=== PATIENT | female | born 1970 | race Hispanic/Latino ===

== ENCOUNTER 2020-07-04 12:44 | Observation (INO) | payer OTHER ==
[2020-07-04 14:26] LABS: Absolute Lymphocytes (CBC) 1.4 K/uL (0.7-4.9); Basophils % 0.2 % (0-1.3); Hematocrit 43.8 % (36.0-45.0); Lymphocytes % 19.5 % (15.3-44.8); MPV 6.9 fL (7.6-11.3); RBC Red Blood Cell Count 5.03 M/uL (3.86-4.86)
[2020-07-04 14:28] LABS: Protime INR 0.94
--- NOTE | 2020-07-04 14:29 | RAD REPORT ---
EXAM DESCRIPTION: RAD - Chest Single View - 07/04/2020 2:16 pm CLINICAL HISTORY: DYSPNEA Chest pain. COMPARISON: No comparisons FINDINGS: Portable technique limits examination quality. Moderate bilateral interstitial lung opacities, greater on the left, most compatible with viral infec tion. The heart is normal in size. No displaced fractures.
[2020-07-04 14:50] LABS: ALT/SGPT 54 U/L (12-78); AST/SGOT 47 U/L (15-37); Albumin 3.1 g/dL (3.4-5.0); Alkaline Phosphatase 179 U/L (45-117); BUN Blood Urea Nitrogen 9 mg/dL (7-18); Bicarbonate 25 mmol/L (21-32); Bilirubin Direct 0.1 mg/dL (0-0.2); Bilirubin Total 0.4 mg/dL (0.2-1.0); Ferritin 319.1 ng/mL (8-388); Glucose Level 244 mg/dL (74-106); Lipase 119 U/L (73-393); Potassium 3.4 mmol/L (3.5-5.1); Protein, Total 8.9 g/dL (6.4-8.2); Sodium Level 134 mmol/L (136-145); Troponin (Emerg Dept Use Only) < 0.02 ng/mL (0.0-0.045)
[2020-07-04 14:56] LABS: Urine Blood TRACE (NEG); Urine Glucose 2+ (NEG); Urine Protein 2+ (NEG); Urine Specific Gravity 1.025 (1.005-1.030); Urine pH 5.5 (5.0-7.0)
[2020-07-04] MEDS ORDERED: METHYLPREDNISOLONE 125 MG INJ ONE ×2 (14:59→22:02)
[2020-07-04 15:56] LABS: Urine Bacteria 20-50 /HPF (<20); Urine RBC <5 /HPF (NONE SEEN)
--- NOTE | 2020-07-04 16:38 | RAD REPORT ---
EXAM DESCRIPTION: CT - Chest For Pe Angio - 07/04/2020 4:26 pm CLINICAL HISTORY: Chest pain. Chest pain;Dyspnea COMPARISON: No comparisons TECHNIQUE: CT angiogram of the pulmonary arteries was performed with MIP. All CT scans are performed using dose optimization technique as appropriate and may include automated exposure control or mA/KV adjustment according to patient size. FINDINGS: No evidence of pulmonary thromboembolism. No acute aortic finding demonstrated. Moderate bilateral interstitial and alveolar lung opacities are present most compatible with viral in fection/pneumonia. No significant pericardial or pleural fluid. No concerning bony finding. Mild diffuse fatty liver. IMPRESSION: No evidence of pulmonary thromboembolism. Interstitial and alveolar lung opacities are present bilaterally most compatible with viral infection / pneumonia.
--- NOTE | 2020-07-04 16:52 | ER ---
Nurse's Notes [facility] Name: Amrita Kaminski Age: 50 yrs Sex: Female : 1970 Arrival Date: 07/04/2020 Time: 12:45 Bed 23 Private MD: Diagnosis: SARS-associated coronavirus as the cause of diseases classified elsewhere;Viral pneumonia, unspecified-COVID related;Acute respiratory failure with hypoxia;Urinary tract infection, site not specified Presentation: 07/04 12:48 Chief complaint: Patient states: Tested positive for covid last Wednesday at [place]. sv SOB, CP for 3 days. Zithromax since yesterday. No fever. Coronavirus screen: Client denies travel out of the [place] in the last 14 days. congestion, cough unrelated to allergies, difficulty breathing, fatigue, Client presents with at least one sign or symptom that may indicate coronavirus-19. Standard/surgical mask placed on the client. Client reports previous positive COVID test result. Ebola Screen: Patient denies travel to an Ebola-affected area in the 21 days before illness onset. Initial Sepsis Screen: Does the patient meet any 2 criteria? HR > 90 bpm. No. Patient's initial sepsis screen is negative. Does the patient have a suspected source of infection? Yes: Productive cough/pneumonia. Risk Assessment: Do you want to hurt yourself or someone else? Patient reports no desire to harm self or others. Onset of symptoms was June 27, 2020. 12:48 Method Of Arrival: Ambulatory sv 12:48 Acuity: ALLEN 3 sv Historical: - Allergies: 12:51 No Known Allergies; sv - PMHx: 12:51 Diabetes - NIDDM; sv - PSHx: 12:51 None; sv - Immunization history:: Flu vaccine is up to date. - Social history:: Smoking status: Patient denies any tobacco usage or history of. Screenin:35 Abuse screen: Denies threats or abuse. Nutritional screening: No deficits noted. vg1 Tuberculosis screening: No symptoms or risk factors identified. Fall Risk No fall in past 12 months (0 pts). No secondary diagnosis (0 pts). No IV (0 pts). Ambulatory Aid- None/Bed Rest/Nurse Assist (0 pts). Gait- Normal/Bed Rest/Wheelchair (0 pts) Mental Status- Oriented to own ability (0 pts). Total Godwin Fall Scale indicates No Risk (0-24 pts). Assessment: 13:30 General: Appears in no apparent distress. comfortable, Behavior is calm, cooperative. vg1 Pain: Complains of pain in chest; states when coughing. Pain does not radiate. Pain began for about a week. Patient tested Covid positive at the ER in [place] on Wednesday06/26/20. Neuro: Level of Consciousness is awake, alert, obeys commands, Oriented to person, place, time, situation. Cardiovascular: Patient's skin is warm and dry. Respiratory: Reports shortness of breath on exertion cough that is productive, and clear. pain with cough Breath sounds are clear bilaterally. GI: Patient currently denies diarrhea, nausea, vomiting. : No signs and/or symptoms were reported regarding the genitourinary system. EENT: No signs and/or symptoms were reported regarding the EENT system. Derm: Skin is intact, is healthy with good turgor. Musculoskeletal: Circulation, motion, and sensation intact. 14:50 Reassessment: Patient appears in no apparent distress at this time. No changes from vg1 previously documented assessment. Patient and/or family updated on plan of care and expected duration. Pain level reassessed. Patient is alert, oriented x 3, equal unlabored respirations, skin warm/dry/pink. Patient denies pain at this time. 16:12 Reassessment: Patient appears in no apparent distress at this time. Patient and/or vg1 family updated on plan of care and expected duration. Pain level reassessed. Patient is alert, oriented x 3, equal unlabored respirations, skin warm/dry/pink. Patient denies pain at this time. Patient states feeling better. 16:47 Reassessment: Patients O2 91% at rest, O2 88% on exertion. Provider Notified. vg1 18:47 Reassessment: New medication orders input by Emir Burton NP. Tylenol 1g PO x1, NS 1 L vg1 bolus IV x1 , and metoprolol 50 mg PO x1. Vital Signs: 12:48 Pulse 110; Resp 18; Temp 98.5; Pulse Ox 96% ; Weight 91.17 kg; Height 5 ft. 0 in. sv (152.40 cm); Pain 8/10; 12:52 BP 191 / 102; sv 13:33 BP 164 / 117; Pulse 110; Resp 20; Temp 99.9(O); Pulse Ox 100% ; vg1 14:30 BP 176 / 105; Pulse 105; Resp 22; Pulse Ox 96% on R/A; vg1 15:00 BP 163 / 111; Pulse 105; Resp 24; Pulse Ox 95% on R/A; vg1 16:00 BP 165 / 102; Pulse 112; Resp 26; Pulse Ox 95% on R/A; vg1 16:49 BP 152 / 112; Pulse 111; Resp 26; Pulse Ox 96% on 3 lpm NC; vg1 17:00 BP 156 / 113; Pulse 116; Resp 26; Pulse Ox 97% on 2 lpm NC; vg1 18:00 BP 166 / 103; Pulse 115; Resp 28; Pulse Ox 95% on 2 lpm NC; vg1 12:48 Body Mass Index 39.25 (91.17 kg, 152.40 cm) sv 13:33 O2 100% resting. O2 91% exertion. vg1 ED Course: 12:45 Patient arrived in ED. as 12:50 Triage completed. sv 12:52 Arm band placed on. sv 13:22 Nimo De La Torre, RN is Primary Nurse. vg1 13:35 Patient has correct armband on for positive identification. Bed in low position. Call vg1 light in reach. Side rails up X 1. 13:35 Patient maintains SpO2 saturation greater than 95% on room air. vg1 13:42 Boris Thomas PA is PHCP. jr8 13:42 Bulmaro Lomas MD is Attending Physician. jr8 14:00 Inserted saline lock: 20 gauge in right antecubital area, using aseptic technique. jp3 Blood collected. 14:00 First set of blood cultures drawn by me. jp3 14:07 Initial lab(s) drawn, by me, sent to lab. jp3 14:10 Second set of blood cultures drawn by me. jp3 14:12 X-ray(s) taken. jp3 14:15 CXR XRAY In Process Unspecified. EDMS 14:26 EKG done, by ED staff, reviewed by Boris SWENSON. jp3 14:27 Warm blanket given. Verbal reassurance given. Diet: Patient given ice chips. Cardiac jp3 monitor on. Pulse ox on. NIBP on. 15:15 Notified Nurse Practitioner and/or Physician Private Household Worker of a critical lab result(s), sv D-dimer-558. 15:32 Blood Culture Adult (2) Sent. sv 15:32 BMP Sent. sv 15:32 C-Reactive Protein Sent. sv 15:32 CBC with Diff Sent. sv 15:32 D-Dimer Sent. sv 15:32 Ferritin Sent. sv 15:32 Lactate Sent. sv 16:26 CT Chest For PE Angio In Process Unspecified. EDMS 16:51 Michael Lawson MD is Hospitalizing Provider. jr8 19:12 Report given to FABIO Lorenzana. vg1 07/05 04:02 Primary Nurse role handed off by Nimo De La Torre, RN mw2 Administered Medications: 07/04 14:50 Drug: SOLU-Medrol 125 mg Route: IVP; Site: right antecubital; vg1 15:38 Follow up: Response: No adverse reaction vg1 17:15 Drug: Rocephin 2 grams Route: IV; Rate: calculated rate; Site: right antecubital; vg1 17:34 Follow up: Response: No adverse reaction; IV Status: Completed infusion vg1 17:34 Drug: Potassium Chloride 40 mEq Route: PO; vg1 18:49 Follow up: Response: No adverse reaction vg1 19:02 Drug: Tylenol 1000 mg Route: PO; vg1 19:02 Drug: Metoprolol 50 mg Route: PO; vg1 19:12 Drug: NS 0.9% 1000 ml Route: IV; Rate: 1 bolus; Site: right antecubital; vg1 Outcome: 16:51 Decision to Hospitalize by Provider. jr8 07/05 18:42 Patient left the ED. ca1 Signatures: Dispatcher [employer] EDWA Karolina Martin, RN RN Vivi Tyler Josh, PA PA jr8 Thelma Newton mw2 Ryan Menjivar jp3 Staci Heath RN RN ca1 Nimo De La Torre RN RN vg1
--- NOTE | 2020-07-04 16:52 | EDPHYS ---
Physician Documentation [facility] Name: Amrita Kaminski Age: 50 yrs Sex: Female : 1970 Arrival Date: 07/04/2020 Time: 12:45 Bed 23 Private MD: ED Physician Bulmaro Lomas HPI: 07/04 14:30 This 50 yrs old Female presents to ER via Ambulatory with complaints of Chest jr8 Pain, Epigastric Pain. 14:30 Onset: The symptoms/episode began/occurred suddenly, last week. Associated signs and jr8 symptoms: Pertinent positives: shortness of breath, COVID diagnosis. Modifying factors: The patient symptoms are alleviated by nebulizer treatment(s). Was diagnosed with COVID on Wednesday. Her PCP gave her ABx and neb treatments to take at home. She reports to ED with c/o of increased SOB and chest pain. She reports she feels she can not speak in full sentences without needing to try to take a deep breath. She has PMHx of DM that she takes metformin for. . Historical: - Allergies: 12:51 No Known Allergies; sv - PMHx: 12:51 Diabetes - NIDDM; sv - PSHx: 12:51 None; sv - Immunization history:: Flu vaccine is up to date. - Social history:: Smoking status: Patient denies any tobacco usage or history of. ROS: 14:32 Cardiovascular: Negative for chest pain, palpitations, and edema, Abdomen/GI: Negative jr8 for abdominal pain, nausea, vomiting, diarrhea, and constipation, : Negative for injury, bleeding, discharge, and swelling, MS/Extremity: Negative for injury and deformity, Skin: Negative for injury, rash, and discoloration. 14:32 Respiratory: Positive for cough, shortness of breath. 14:37 All other systems are negative. jr8 Exam: 14:33 Head/Face: Normocephalic, atraumatic. Chest/axilla: Normal chest wall appearance and jr8 motion. Nontender with no deformity. No lesions are appreciated. Cardiovascular: Regular rate and rhythm with a normal S1 and S2. No gallops, murmurs, or rubs. Normal PMI, no JVD. No pulse deficits. Abdomen/GI: Soft, non-tender, with normal bowel sounds. No distension or tympany. No guarding or rebound. No evidence of tenderness throughout. Skin: Warm, dry with normal turgor. Normal color with no rashes, no lesions, and no evidence of cellulitis. MS/ Extremity: Pulses equal, no cyanosis. Neurovascular intact. Full, normal range of motion. 14:33 Respiratory: mild respiratory distress is noted, Respirations: shallow respirations, that is mild, Breath sounds: decreased breath sounds, + upper airway congestion. Vital Signs: 12:48 Pulse 110; Resp 18; Temp 98.5; Pulse Ox 96% ; Weight 91.17 kg; Height 5 ft. 0 in. sv (152.40 cm); Pain 8/10; 12:52 BP 191 / 102; sv 13:33 BP 164 / 117; Pulse 110; Resp 20; Temp 99.9(O); Pulse Ox 100% ; vg1 14:30 BP 176 / 105; Pulse 105; Resp 22; Pulse Ox 96% on R/A; vg1 15:00 BP 163 / 111; Pulse 105; Resp 24; Pulse Ox 95% on R/A; vg1 16:00 BP 165 / 102; Pulse 112; Resp 26; Pulse Ox 95% on R/A; vg1 16:49 BP 152 / 112; Pulse 111; Resp 26; Pulse Ox 96% on 3 lpm NC; vg1 17:00 BP 156 / 113; Pulse 116; Resp 26; Pulse Ox 97% on 2 lpm NC; vg1 18:00 BP 166 / 103; Pulse 115; Resp 28; Pulse Ox 95% on 2 lpm NC; vg1 12:48 Body Mass Index 39.25 (91.17 kg, 152.40 cm) sv 13:33 O2 100% resting. O2 91% exertion. vg1 MDM: 13:45 Patient medically screened. jr8 14:35 Differential diagnosis: viral Infection, bacterial infection, URI, bronchitis, jr8 pneumonia. Data interpreted: lunchroom monitor: Pulse oximetry: on room air is 93 %. Interpretation: acceptable. Test interpretation: by ED physician or midlevel provider: ECG, plain radiologic studies. 16:47 Data reviewed: vital signs, nurses notes, lab test result(s), radiologic studies, CT jr8 scan, plain films. Data interpreted: Pulse oximetry: on room air is 91 %. Interpretation: hypoxia. Oxygen with exertion 88%. Counseling: I had a detailed discussion with the patient and/or guardian regarding: the historical points, exam findings, and any diagnostic results supporting the discharge/admit diagnosis, lab results, radiology results, the need for further work-up and treatment in the hospital. 07/04 13:44 Order name: Blood Culture Adult (2) [facility] 07/04 13:44 Order name: BMP [facility] 07/04 13:44 Order name: C-Reactive Protein [facility] 07/04 13:44 Order name: CBC with Diff [facility] 07/04 13:44 Order name: D-Dimer [facility] 07/04 13:44 Order name: Ferritin [facility] 07/04 13:44 Order name: Lactate [facility] 07/04 13:44 Order name: LFT's; Complete Time: 16:09 8 07/04 13:44 Order name: Lipase; Complete Time: 16:09 8 07/04 13:44 Order name: Procalcitonin; Complete Time: 16:09 8 07/04 13:44 Order name: PT-INR; Complete Time: 16: 8 07/04 13:44 Order name: Ptt, Activated; Complete Time: 16: 8 07/04 13:44 Order name: Troponin (emerg Dept Use Only); Complete Time: 16:09 8 07/04 13:44 Order name: Urine Microscopic Only; Complete Time: 16:09 8 07/04 13:45 Order name: Blood Culture [facility] 07/04 13:45 Order name: Basic Metabolic Panel; Complete Time: 16:09 EDMS 07/04 13:45 Order name: C-Reactive Protein; Complete Time: 16:09 EDMS 07/04 13:45 Order name: CBC with Automated Diff; Complete Time: 14:34 EDMS 07/04 13:45 Order name: D-Dimer; Complete Time: 16:09 EDMS 07/04 13:45 Order name: Ferritin; Complete Time: 16:09 EDMS 07/04 13:45 Order name: Lactate; Complete Time: 16:09 EDMS 07/04 14:40 Order name: Urine Dipstick--Ancillary (enter results); Complete Time: 16:09 em1 07/04 15:58 Order name: Urine Culture [facility] 07/04 21:26 Order name: Glucose, Ancillary Testing; Complete Time: 09:15 EDMS 07/05 05:24 Order name: CBC with Automated Diff; Complete Time: 09:15 EDMS 07/05 05:46 Order name: Comprehensive Metabolic Panel; Complete Time: 09:15 EDMS 07/05 05:46 Order name: C-Reactive Protein; Complete Time: 09:15 EDMS 07/05 05:46 Order name: Magnesium; Complete Time: 09:15 EDMS 07/05 05:46 Order name: Ferritin; Complete Time: 09:15 EDMS 07/05 07:07 Order name: Hemoglobin A1c; Complete Time: 09:15 EDMS 07/04 13:44 Order name: CXR XRAY; Complete Time: 14:34 jr8 07/04 13:44 Order name: EKG; Complete Time: 13:46 jr8 07/04 13:44 Order name: Cardiac monitoring; Complete Time: 14:14 jr8 07/04 13:44 Order name: Droplet/Contact Precautions; Complete Time: 14:14 jr8 07/04 13:44 Order name: EKG - Nurse/Tech; Complete Time: 14:27 jr8 07/04 13:44 Order name: IV Start; Complete Time: 14:14 jr8 07/04 13:44 Order name: Labs collected and sent; Complete Time: 14:14 jr8 07/04 13:44 Order name: O2 Per Protocol; Complete Time: 14:14 jr8 07/04 13:44 Order name: O2 Sat Monitoring; Complete Time: 14:12 jr8 07/04 13:44 Order name: Urine Dipstick-Ancillary (obtain specimen); Complete Time: 14:39 jr8 07/04 16:09 Order name: CT Chest For PE Angio; Complete Time: 16:42 jr8 07/05 09:11 Order name: Glucose, Ancillary Testing; Complete Time: 09:15 EDMS 07/05 12:35 Order name: Glucose, Ancillary Testing; Complete Time: 12:38 EDMS 07/05 17:28 Order name: Glucose, Ancillary Testing; Complete Time: 17:47 EDMS Administered Medications: 14:50 Drug: SOLU-Medrol 125 mg Route: IVP; Site: right antecubital; vg1 15:38 Follow up: Response: No adverse reaction vg1 17:15 Drug: Rocephin 2 grams Route: IV; Rate: calculated rate; Site: right antecubital; vg1 17:34 Follow up: Response: No adverse reaction; IV Status: Completed infusion vg1 17:34 Drug: Potassium Chloride 40 mEq Route: PO; vg1 18:49 Follow up: Response: No adverse reaction vg1 19:02 Drug: Tylenol 1000 mg Route: PO; vg1 19:02 Drug: Metoprolol 50 mg Route: PO; vg1 19:12 Drug: NS 0.9% 1000 ml Route: IV; Rate: 1 bolus; Site: right antecubital; vg1 Disposition: 07/04/20 16:51 Hospitalization ordered by Michael Lawson for Inpatient Admission. Preliminary diagnosis are SARS-associated coronavirus as the cause of diseases classified elsewhere, Viral pneumonia, unspecified - COVID related, Acute respiratory failure with hypoxia, Urinary tract infection, site not specified. - Bed requested for [facility]. - Status is Inpatient Admission. ca1 - Condition is Fair. - Problem is new. - Symptoms have improved. Addendum: 07/08/2020 06:13 Co-signature as Attending Physician, Bulmaro Lomas MD I agree with the assessment and k dr plan of care. Signatures: Dispatcher [employer] EDMS Karolina Martin RN RN Gage Eckert RN RN sg Bulmaro Lomas MD MD [facility] Boris Thomas PA PA jr8 Staci Heath RN RN [facility] Nimo De La Torre RN RN vg1 Corrections: (The following items were deleted from the chart) 07/04 14:14 13:44 Roger ordered. jr8 jp3 19:15 16:51 Hospitalization Ordered by Michael Lawson MD for Inpatient Admission. Preliminary sg diagnosis is SARS-associated coronavirus as the cause of diseases classified elsewhere; Viral pneumonia, unspecified - COVID related; Acute respiratory failure with hypoxia; Urinary tract infection, site not specified. Bed requested for Telemetry/MedSurg (Inpatient). Status is Inpatient Admission. Condition is Fair. Problem is new. Symptoms have improved. jr8 07/05 18:42 07/04 19:15 07/04/2020 16:51 Hospitalization Ordered by Michael Lawson MD for Inpatient ca1 Admission. Preliminary diagnosis is SARS-associated coronavirus as the cause of diseases classified elsewhere; Viral pneumonia, unspecified - COVID related; Acute respiratory failure with hypoxia; Urinary tract infection, site not specified. Bed requested for [facility]. Status is Inpatient Admission. Condition is Fair. Problem is new. Symptoms have improved. sg
[2020-07-04] MEDS ORDERED: CEFTRIAXONE/SWI 1gm 1 GM/10 ML SYR ONE (17:10)
[2020-07-04] MEDS ORDERED: POTASSIUM CL SA 10 MEQ TAB PO ONE (17:47)
[2020-07-04] MEDS ORDERED: NA CHLORIDE 0.9% 1,000 ML ONE (19:12)
[2020-07-04] MEDS ORDERED: ACETAMINOPHEN 500 MG TAB ONE (19:13)
[2020-07-04] MEDS ORDERED: METOPROLOL TAR 50 MG TAB ONE (19:13)
--- NOTE | 2020-07-04 19:46 | P.HP ---
Certification for Inpatient Patient admitted to: Observation With expected LOS: <2 Midnights Patient will require the following post-hospital care: None Practitioner: I am a practitioner with admitting privileges, knowledge of patient current condition, hospital course, and medical plan of care. Services: Services provided to patient in accordance with Admission requirements found in Title 42 Section 412.3 of the Code of Federal Regulations <MichealEmir - Last Filed: 07/04/20 19:43> Patient History Date of Service: 07/04/20 Primary Care Provider: Karolina Woodson Reason for admission: COVID pneumonia History of Present Illness: 42-year-old female with history of diabetes mellitus type 2 presents emergency department for shortness of breath. Patient reports testing positive for COVID on WednesdayJune 27. Patient reports increasing shortness of breath over the course of the last 2 days which is why she presented to the emergency department for evaluation. Patient was evaluated in the emergency department found to have elevated C. reactive protein 130 D-dimer 558 UTI with 2 0-[address] chest demonstrating interstitial alveolar lung opacities present bilaterally. Patient with some mild oxygen requirement requiring approximately 2-3 L on nasal cannula. ED provider wishes to admit for observation. - Past Medical/Surgical History Diabetic: Yes -: Diabetes mellitus type 2 -: none Psychosocial/ Personal History: Patient lives at home with family - Family History Father Notes: from COVID Mother -: Liver disease - Social History Smoking Status: Never smoker Alcohol use: No CD- Drugs: No Caffeine use: Yes Place of Residence: Home <Emir Burton - Last Filed: 07/04/20 19:43> Date of Service: 07/15/20 <Michael Lawson - Last Filed: 07/15/20 20:34> Allergies No Known Allergies Allergy (Verified 07/05/20 02:09) Review of Systems 10-point ROS is otherwise unremarkable General: Chills, Weakness, Malaise Respiratory: Cough, Shortness of Breath <Emir Burton - Last Filed: 07/04/20 19:43> Physical Examination - Physical Exam General: Alert, In no apparent distress HEENT: Atraumatic, PERRLA, Mucous membr. moist/pink Neck: Supple, 2+ carotid pulse no bruit, No LAD Respiratory: Clear to auscultation bilaterally, Normal air movement Cardiovascular: Regular rate/rhythm, Normal S1 S2 Gastrointestinal: Normal bowel sounds, No tenderness Musculoskeletal: No tenderness Integumentary: No rashes Neurological: Normal speech, Normal strength at 5/5 x4 extr, Normal tone, Normal affect - Studies Laboratory Data (last 24 hrs) 07/04/20 14:07: PT 10.8, INR 0.94, APTT 28.2 07/04/20 14:07: WBC 7.10, Hgb 14.6, Hct 43.8, Plt Count 231 07/04/20 14:07: Sodium 134 L, Potassium 3.4 L, BUN 9, Creatinine 0.47 L, Glucose 244 H, Total Bilirubin 0.4, AST 47 H, ALT 54, Alkaline Phosphatase 179 H, Lipase 119 <Emir Burton - Last Filed: 07/04/20 19:43> Assessment and Plan - Plan Assessment COVID pneumonia with hypoxia Diabetes mellitus type 2 Hypertension- undiagnosed Plan COVID pneumonia with hypoxia: Continue IV steroids, oral supplementations. Supplemental oxygen as needed, daily room air saturations. Possible discharge tomorrow morning if patient does well overnight and we can arrange home oxygen. Trend CRP, ferritin levels. Pulmonology consult in place. Patient DOES NOT WISH TO RECIEVE IVERMECTIN. DVT prophylaxis Lovenox 40 mg subcutaneous once daily. Appreciate further input from pulmonology. Diabetes mellitus type 2: A.c. HS Accu-Cheks, sliding scale insulin therapy. Hypertension-undiagnosed: Suspect underlying primary hypertension, blood pressure 160/100 when I evaluated her. Patient recently had IV contrast for CT, will initiate beta-tashia therapy at this time. Can possibly be switched to CHRIS-inhibitor per primary care doctor at a later time. Discharge Plan: Home Plan to discharge in: 24 Hours - Advance Directives Does patient have a Living Will: No Does patient have a Durable POA for Healthcare: No - Code Status/Comfort Care Code Status Assessed: Yes (Full code) Critical Care: No Time Spent Managing Pts Care (In Minutes): 55 <Emir Burton - Last Filed: 07/04/20 19:43> - Plan Plan of care reviewed as noted above by Emir Burton, and I agree with the management plan as noted above. <Michael Lawson - Last Filed: 07/15/20 20:34>
[2020-07-04] MEDS: METHYLPREDNISOLONE 125 MG INJ IV SCH (21:00)
[2020-07-04] MEDS ORDERED: INSULIN -REGULAR HUMAN 50 UNIT/0.5 ML ML ONE (21:41)
[2020-07-04] MEDS: FAMOTIDINE 20 MG TAB PO SCH (21:43)
[2020-07-04] MEDS ORDERED: FAMOTIDINE 20 MG TAB ONE (21:43)
[2020-07-04] MEDS ORDERED: METHYLPREDNISOLONE 40 MG INJ ONE (21:43)
[2020-07-04] MEDS: INSULIN -REGULAR HUMAN 50 UNIT/0.5 ML ML SQ SCH (21:43)
[2020-07-04] MEDS: ASCORBIC ACID 500 MG TABLET PO SCH (21:43)
[2020-07-04] MEDS ORDERED: ASCORBIC ACID 500 MG TABLET ONE (21:43)
[2020-07-04] MEDS: THIAMINE HCL 100 MG TABLET PO SCH (22:40)
[2020-07-05] MEDS ORDERED: AMLODIPINE 5 MG TAB PO ONE (00:26)
[2020-07-05] MEDS ORDERED: MELATONIN 5 MG TABLET PO PRN (00:26)
[2020-07-05] MEDS ORDERED: BENZONATATE 100 MG CAP PO PRN (00:26)
[2020-07-05] MEDS ORDERED: AMLODIPINE 5 MG TAB ONE (01:11)
[2020-07-05] MEDS ORDERED: BENZONATATE 100 MG CAP PO ONE (01:11)
[2020-07-05 02:04] VITALS: BMI 39.2
[2020-07-05] MEDS ORDERED: MELATONIN 5 MG TABLET PO ONE (02:24)
[2020-07-05 05:16] LABS: Absolute Lymphocytes (CBC) 1.2 K/uL (0.7-4.9); Basophils % 0.1 % (0-1.3); Hematocrit 40.6 % (36.0-45.0); Lymphocytes % 21.1 % (15.3-44.8); RBC Red Blood Cell Count 4.67 M/uL (3.86-4.86)
[2020-07-05 05:44] LABS: ALT/SGPT 59 U/L (12-78); AST/SGOT 48 U/L (15-37); Alkaline Phosphatase 164 U/L (45-117); BUN Blood Urea Nitrogen 8 mg/dL (7-18); Bicarbonate 22 mmol/L (21-32); Bilirubin Total 0.4 mg/dL (0.2-1.0); Glucose Level 272 mg/dL (74-106); Potassium 4.1 mmol/L (3.5-5.1); Sodium Level 138 mmol/L (136-145)
[2020-07-05 05:45] LABS: Albumin 2.8 g/dL (3.4-5.0); Ferritin 396.4 ng/mL (8-388); Magnesium 2.3 mg/dL (1.8-2.4)
[2020-07-05] MEDS ORDERED: GLUCAGON 1 MG/VIAL IM PRN (06:09)
[2020-07-05] MEDS ORDERED: D50W 25 GM/50 ML SYRINGE IV PRN (06:09)
[2020-07-05] MEDS ORDERED: INSULIN GLARGINE 100 UNITS/ML SQ SCH (08:00)
[2020-07-05] MEDS ORDERED: ENOXAPARIN 40 MG/0.4 ML SQ SCH (09:00)
[2020-07-05] MEDS: ASCORBIC ACID 500 MG TABLET PO SCH ×3 (09:00→17:00)
[2020-07-05] MEDS: THIAMINE HCL 100 MG TABLET PO SCH (09:00)
[2020-07-05] MEDS ORDERED: VITAMIN D 1000 UNIT TAB PO SCH (09:00)
[2020-07-05] MEDS ORDERED: ZINC SULFATE 220 MG CAP PO SCH (09:00)
[2020-07-05] MEDS ORDERED: CEFTRIAXONE 1 GM/NS 50 ML 1 GM/50 ML BAG IV SCH (09:00)
[2020-07-05] MEDS: FAMOTIDINE 20 MG TAB PO SCH (09:00)
[2020-07-05] MEDS: METHYLPREDNISOLONE 125 MG INJ IV SCH (09:00)
[2020-07-05] MEDS: INSULIN -REGULAR HUMAN 50 UNIT/0.5 ML ML SQ SCH ×3 (09:25→17:40)
[2020-07-05] MEDS ORDERED: INSULIN GLARGINE 100 UNITS/ML SQ ONE (09:25)
[2020-07-05] MEDS ORDERED: INSULIN -REGULAR HUMAN 50 UNIT/0.5 ML ML ONE ×3 (09:26→17:49)
[2020-07-05] MEDS ORDERED: ENOXAPARIN 40 MG/0.4 ML SQ ONE (09:27)
[2020-07-05] MEDS ORDERED: THIAMINE HCL 100 MG TABLET ONE (09:28)
[2020-07-05] MEDS ORDERED: ASCORBIC ACID 500 MG TABLET ONE ×3 (09:29→17:49)
[2020-07-05] MEDS ORDERED: VITAMIN D 1000 UNIT TAB ONE (09:29)
[2020-07-05] MEDS ORDERED: METHYLPREDNISOLONE 40 MG INJ ONE (09:29)
[2020-07-05] MEDS ORDERED: ZINC SULFATE 220 MG CAP ONE (09:29)
[2020-07-05] MEDS ORDERED: FAMOTIDINE 20 MG TAB ONE (09:30)
[2020-07-05] MEDS ORDERED: ACETAMINOPHEN 500 MG TAB PO PRN (10:42)
[2020-07-05] MEDS ORDERED: INFLUENZA VACCINE (for 3y+) 0.5 ML DOSE IMVAC ONE ×2 (11:00→17:05)
[2020-07-05] MEDS ORDERED: CEFTRIAXONE/SWI 1gm 1 GM/10 ML SYR IV SCH (16:00)
[2020-07-05 16:27] VITALS: O2SAT 95
[2020-07-05 16:29] VITALS: BP 158/94; TEMP 98.4
--- NOTE | 2020-07-05 17:27 | P.DS ---
Admission Date: 07/04/20 Discharge Date: 07/05/20 Primary Care Provider: Karolina Bal Disposition: ROUTINE DISCHARGE Discharge Condition: GOOD Reason for Admission: COVID pneumonia Procedures: CTA Chest (07/04): No evidence of pulmonary thromboembolism. Interstitial and alveolar lung opacities are present bilaterally most compatible with viral infection/ pneumonia. Problem List: acute hypoxemic respiratory failure secondary to COVID pneumonia Diabetes mellitus type 2, non-insulin dependent Brief History of Present Illness: 42-year-old female with history of diabetes mellitus type 2 presents emergency department for shortness of breath. Patient reports testing positive for COVID on WednesdayJune 27. Patient reports increasing shortness of breath over the course of the last 2 days which is why she presented to the emergency department for evaluation. Patient was evaluated in the emergency department found to have elevated C. reactive protein 130 D-dimer 558 UTI with 20-[address] chest demonstrating interstitial alveolar lung opacities present bilaterally. Patient with some mild oxygen requirement requiring approximately 2-3 L on nasal cannula. ED provider wishes to admit for observation. Hospital Course: She was treated for COVID-19 pneumonia, stable on 2-3 L nasal cannula and was feeling well. She was able to be set up with home O2 and was discharged home. She will follow up with Dr. Callaway in 1 week. Hgb A1c was found to be 10.5 and she had hyperglycemia - further increased by steroids. She was discharged with prednisone x 2 weeks, vitamins, aspirin 81mg, and Lantus. She was advised to check glucose at home, keep diary, and f/u with PCP for further adjustments. Vital Signs/Physical Exam: Temp Pulse Resp BP Pulse Ox 98.4 F 96 H 20 158/94 H 96 07/05/20 16:00 07/05/20 16:00 07/05/20 16:00 07/05/20 16:00 07/05/20 16:00 General: Alert, In no apparent distress HEENT: Sclerae nonicteric Neck: Supple Respiratory: Crackles/rales (bibasilar) Cardiovascular: No edema, Regular rate/rhythm (slight sinus tachycardia (90-100) at times) Gastrointestinal: Soft and benign, Non-distended, No tenderness Musculoskeletal: No tenderness Integumentary: No rashes Neurological: Normal speech, Normal affect Laboratory Data at Discharge: WBC 5.50 K/uL (4.3-10.9) D 07/05/20 04:56 Hgb 13.6 g/dL (12.0-15.0) 07/05/20 04:56 Hct 40.6 % (36.0-45.0) 07/05/20 04:56 Plt Count 230 K/uL (152-406) 07/05/20 04:56 PT 10.8 SECONDS (9.5-12.5) 07/04/20 14:07 INR 0.94 07/04/20 14:07 APTT 28.2 SECONDS (24.3-36.9) 07/04/20 14:07 Sodium 138 mmol/L (136-145) 07/05/20 04:56 Potassium 4.1 mmol/L (3.5-5.1) 07/05/20 04:56 BUN 8 mg/dL (7-18) 07/05/20 04:56 Creatinine 0.47 mg/dL (0.55-1.3) L 07/05/20 04:56 Glucose 272 mg/dL (74-106) H 07/05/20 04:56 Magnesium 2.3 mg/dL (1.8-2.4) 07/05/20 04:56 Total Bilirubin 0.4 mg/dL (0.2-1.0) 07/05/20 04:56 AST 48 U/L (15-37) H 07/05/20 04:56 ALT 59 U/L (12-78) 07/05/20 04:56 Alkaline Phosphatase 164 U/L (45-117) H 07/05/20 04:56 Lipase 119 U/L (73-393) 07/04/20 14:07 Home Medications: Ascorbic Acid [Vitamin C*] 500 mg PO QID 30 Days #120 tablet 07/05/20 Aspirin [Aspirin EC 81 MG] 81 mg PO DAILY 30 Days #30 tablet. 07/05/20 Benzonatate [Tessalon Perle*] 100 mg PO TID PRN #15 cap 07/05/20 Cholecalciferol (Vitamin D3) [Vitamin D 1000 Iu Tab*] 4,000 unit PO DAILY 30 Days #120 tab 07/05/20 Insulin Glargine,Hum.rec.anlog [Lantus Solostar] 25 unit SQ BEDTIME 30 Days #3 insuln.pen 07/05/20 Zinc Sulfate [Zinc Sulfate*] 220 mg PO DAILY 30 Days #30 cap 07/05/20 predniSONE [Deltasone] 20 mg PO SEECOM 7 Days #21 tab 07/05/20 New Medications: Aspirin [Aspirin EC 81 MG] 81 mg PO DAILY 30 Days #30 tablet. Insulin Glared,Hum.rec.anlog [Lantus Solostar] 25 unit SQ BEDTIME 30 Days #3 insuln.pen predniSONE [Deltasone] 20 mg PO SEECOM 7 Days #21 tab Benzonatate [Tessalon Perle*] 100 mg PO TID PRN #15 cap PRN Reason: Cough Ascorbic Acid [Vitamin C*] 500 mg PO QID 30 Days #120 tablet Cholecalciferol (Vitamin D3) [Vitamin D 1000 Iu Tab*] 4,000 unit PO DAILY 30 Days #120 tab Zinc Sulfate [Zinc Sulfate*] 220 mg PO DAILY 30 Days #30 cap Physician Discharge Instructions: You were found to have COVID-19 pneumonia, you were stable on 2-3 LPM of oxygen. For discharged with steroids, vitamins, aspirin, and home oxygen. In addition your sugar has been elevated. Your hemoglobin A1c was found to be 10.5. He is discharged with insulin. Please check your glucose levels twice a day in the morning (fasting) and in the evening. Keep a daily log intake with you when you follow up with PCP in the next week. Follow up with pulmonology, Dr. Callaway in 1 week. Diet: ADA Activity: Ad priyanka Followup: RUIZ BAL [Primary Care Provider] - Time spent managing pt's care (in minutes): 45
== END 2020-07-05 18:41 | disposition home or self-care (01) ==
LOC: ER 12:44 → ERHOLD 17:23
PROVIDERS: ADMIT Hospitalist; ATTEND Hospitalist
DX: U07.1 COVID-19 (principal); J12.82 Pneumonia due to coronavirus disease 2019; R09.02 Hypoxemia; R79.1 Abnormal coagulation profile; E11.65 Type 2 diabetes mellitus with hyperglycemia; I10 Essential (primary) hypertension; Z23 Encounter for immunization
CPT/HCPCS: 96365; 93005; 87040 ×2; 87088; 85025 ×2; 87086; 80048; 36415; 83735; 85610; 82947 ×4; 85379; 80076; 83605; 85730; 83036; 84484; 82728 ×2; 83690; 80053; 84145; 86140 ×2; 71275; 71045; 90471; 94760 ×2; 96375; 99285; Q9967; Q2035; J1650; J1815; J0696; J7030; J2930 ×2; J2920; G0378 ×3; 81003; 81015